=== PATIENT | female | born 1975 | race Caucasian/White ===

== ENCOUNTER → 2017-06-19 | Outpatient (CLI) | payer MEDICAID ==
[~2017-06-19] MED LIST: AMLODIPINE BES10 MG PO; ASPIRIN MICROT325 MG PO; DULOXETINE60 MG PO; GABAPENTIN 400400 M1 GT; KEFLEX500 M1 PO; METOPROLOL SUCC50 M4 PO; NAPROXEN500 M1 PO; NIFEDICAL XL30 MG PO; VENTOLIN H0.09 MG/Ac IH
--- NOTE | 2017-06-19 16:50 | RADIOLOGY REPORT PS360 ---
EXAM: LUMBAR SPINE 5 VIEWS HISTORY: Low back pain and leg pain PAIN IN RT THIGH ORDERING PHYSICIAN: Jose Brannon MD PATIENT AGE: 41 years COMPARISON: None FINDINGS: Normal alignment. No fracture or dislocation. No lytic or blastic change. No significant degenerative change. The disc spaces are preserved. IMPRESSION: Negative lumbar spine
== END ==
LOC: RAD 15:03
DX: M79.651 Pain in right thigh (principal); M54.5 Low back pain